=== PATIENT | female | born 1960 | race Caucasian/White ===

== ENCOUNTER 2017-03-23 21:42 | Emergency (ER) | payer BC ==
--- NOTE | 2017-03-23 21:46 | ED ---
Back Pain - History of Current Complaint Stated Complaint: INFLAMED BUG BITE Time Seen by Provider: 03/23/17 21:45 - Allergies/Home Medications Allergies/Adverse Reactions: Allergies Allergy/AdvReac Type Severity Reaction Status Date / Time Sertraline [From Zoloft] Allergy Unknown Verified 09/25/13 13:29 Reaction Details Discharge - Discharge Plan Condition: Stable Disposition: HOME
--- NOTE | 2017-03-23 21:46 | UC ---
Bite Injury/Animal HPI - HPI Summary HPI Summary: 56 year old male presents with complains of fire ant bites on her feet. - History of Current Complaint Stated Complaint: INFLAMED BUG BITE Time Seen by Provider: 03/23/17 21:45 Hx Obtained From: Patient Severity Currently: Moderate Severity Initially: Moderate Pain Scale Used: 0-10 Numeric - 5 Type of Bite: Animal - Allergies/Home Medications Allergies/Adverse Reactions: Allergies Allergy/AdvReac Type Severity Reaction Status Date / Time Sertraline [From Zoloft] Allergy Unknown Verified 09/25/13 13:29 Reaction Details PMH/Surg Hx/FS Hx/Imm Hx Previously Healthy: Yes - Surgical History Surgical History: None Review of Systems Constitutional: Negative Skin: Other - insect bite both feet. Eyes: Negative ENT: Negative Respiratory: Negative Cardiovascular: Negative Gastrointestinal: Negative Genitourinary: Negative Motor: Negative Neurovascular: Negative Musculoskeletal: Negative Neurological: Negative Psychological: Negative All Other Systems Reviewed And Are Negative: Yes Physical Exam Triage Information Reviewed: Yes Eye Exam: Normal ENT Exam: Normal Dental Exam: Normal Neck exam: Normal Neck: Positive: 1 Respiratory Exam: Normal Cardiovascular Exam: Normal Abdominal Exam: Normal Musculoskeletal Exam: Normal Neurological Exam: Normal Psychological Exam: Normal Skin: Positive: Other - fire ant bites on both feet. Bite Injury Course/Dx - Differential Dx/Diagnosis Provider Diagnoses: insect bite both feet Discharge - Discharge Plan Condition: Stable Disposition: HOME Prescriptions: Methylprednisolone [Medrol Dosepak 4 MG*] 4 mg PO .SEE SARAH INSTRUCTION #21 tab Mupirocin 2% OINT* [Bactroban 2 % Oint*] 1 applic TOPICAL BID #1 tube Sulfamethox/Trimethoprim DS* [Bactrim DS 800/160 TAB*] 1 tab PO BID #20 tab Patient Education Materials: Insect Bite or Sting (ED) Referrals: Yisel Omer MD [Primary Care Provider] -
[2017-03-23 21:50] VITALS: BP 138/72
[2017-03-23] MEDS ORDERED: Sulfamethox/Trimethoprim DS 800/160* TAB PO ONE (21:54)
== END 2017-03-23 22:19 | disposition home or self-care (01) ==
LOC: UCEAST 21:42
DX: S90.862A Insect bite (nonvenomous), left foot, initial encounter (principal); S90.861A Insect bite (nonvenomous), right foot, initial encounter; W57.XXXA Bitten or stung by nonvenomous insect and other nonvenomous arthropods, initial encounter; Y93.9 Activity, unspecified; Y92.9 Unspecified place or not applicable; Y99.9 Unspecified external cause status
CPT/HCPCS: 99212; A9270-GY; G0463